=== PATIENT | female | born 1965 | race Caucasian/White ===

== ENCOUNTER 2017-02-08 08:21 | Emergency (ER) | payer MEDICARE, OTHER ==
[~2017-02-08] VITALS: Ht 177.8 cm; Wt 54.4 kg
[~2017-02-08 08:21] MED LIST: ALBU8HFA4 INH; D ME PO; D-ME236L5 PO; DM/P295L17 PO; ESTR1TAB17 PO; FLUO10CA26 PO; LEVO125T PO; LEVO750T21 PO; OXYM30SP NS; PANT40TA2 PO; PREDNISONE PO; RALO60TA PO
[2017-02-08] MEDS ORDERED: AZAT50TA18 PO (08:32)
--- NOTE | 2017-02-08 09:33 | NUR ---
Pt is requesting pain medication, Dr. Alford notified.
--- NOTE | 2017-02-08 10:28 | NUR ---
IV removed. Catheter intact and site benign. Pressure and 4x4 gauze applied to site. No bleeding noted. Patient discharged to home in stable conditon with . Written and verbal after care instructions given. Patient verbalizes understanding of instructions.
== END 2017-02-08 10:33 | disposition home or self-care (01) ==
LOC: ER 08:21
DX: G43.909 Migraine, unspecified, not intractable, without status migrainosus (principal); F32.9 Major depressive disorder, single episode, unspecified; F17.200 Nicotine dependence, unspecified, uncomplicated; K21.9 Gastro-esophageal reflux disease without esophagitis; Z88.0 Allergy status to penicillin; Z88.2 Allergy status to sulfonamides
CPT/HCPCS: 96361; 96374; 96375; 99284; A4663; J1170; J2765; J7030

== ENCOUNTER 2017-08-11 10:24 | Emergency (ER) | payer MEDICARE, OTHER ==
[~2017-08-11] VITALS: Ht 177.8 cm; Wt 54.4 kg
[~2017-08-11 10:24] MED LIST changes: -ALBU8HFA4 INH; +AZAT50TA18 PO; -D ME PO; -D-ME236L5 PO; -DM/P295L17 PO; -FLUO10CA26 PO; -OXYM30SP NS; -PANT40TA2 PO
[2017-08-11] MEDS ORDERED: OMEP40CA37 PO (10:41)
[2017-08-11] MEDS ORDERED: PARO25TA16 PO (10:41)
[2017-08-11] MEDS ORDERED: SUCR1TAB PO (10:41)
[2017-08-11] MEDS ORDERED: COLC0.6C3 PO (10:41)
[2017-08-11] MEDS ORDERED: ONDANSETRON 4 MG/2 ML VIAL ONE ×2 (10:43→11:58)
[2017-08-11] MEDS ORDERED: HYDROMORPHONE 4 MG/1 ML DISP.SYRIN ONE ×2 (10:44→11:57)
[2017-08-11] MEDS ORDERED: IV NORMAL SALINE 1000 ML BAG IV ONE ×2 (10:45→11:45)
[2017-08-11] MEDS ORDERED: HYDROMORPHONE 1 MG/1 ML DISP.SYRIN IV ONE ×2 (10:45→11:45)
[2017-08-11] MEDS ORDERED: ONDANSETRON 4 MG/2 ML VIAL IV ONE (10:45)
--- NOTE | 2017-08-11 11:16 | NUR ---
Patient is resting comfortably on gurney with eyes closed. When patient's pain status was reassessed, patient requested, "Can I have one more bag of fluid and another dose of pain medicine before going home?" MD notified.
[2017-08-11] MEDS ORDERED: ONDANSETRON IV *ER 4 MG/2 ML VIAL IV ONE (11:45)
--- NOTE | 2017-08-11 12:03 | NUR ---
IV removed. per MD order. Catheter intact and site benign. Pressure and 4x4 gauze applied to site. No bleeding noted.
--- NOTE | 2017-08-11 12:04 | NUR ---
Patient is for discharge per Dr Peoples. Patient reported that she just called her adult daughter for a ride home.
--- NOTE | 2017-08-11 12:09 | NUR ---
"I feel so much better. Thank you very much." per patient's verbalization. Patient discharged to home in stable conditon. Written and verbal after care instructions given to patient. Patient verbalizes understanding of instructions. Patient left ER with steady gait.
== END 2017-08-11 12:10 | disposition home or self-care (01) ==
LOC: ER 10:24
DX: R51 Headache (principal); K21.9 Gastro-esophageal reflux disease without esophagitis; F17.210 Nicotine dependence, cigarettes, uncomplicated; Z88.0 Allergy status to penicillin; Z88.2 Allergy status to sulfonamides; Z88.8 Allergy status to other drugs, medicaments and biological substances; Z79.899 Other long term (current) drug therapy; Z79.2 Long term (current) use of antibiotics
CPT/HCPCS: A4663; J1170; J2405; J7030

== ENCOUNTER 2017-09-13 10:36 | Emergency (ER) | payer MEDICARE, OTHER ==
[~2017-09-13] VITALS: Ht 177.8 cm; Wt 56.7 kg
[~2017-09-13 10:36] MED LIST changes: +COLC0.6C3 PO; -LEVO750T21 PO; +OMEP40CA37 PO; +PARO25TA16 PO; -PREDNISONE PO; +SUCR1TAB PO
[2017-09-13] MEDS ORDERED: RESTASIS 0.05% EYE EMULSION (10:52)
[2017-09-13] MEDS ORDERED: DIAZ10TA PO (10:53)
[2017-09-13] MEDS ORDERED: PANTOPRAZOLE SODIUM 40 MG VIAL IV ONE (11:15)
[2017-09-13] MEDS ORDERED: ONDANSETRON 4 MG/2 ML VIAL IV ONE (11:15)
[2017-09-13] MEDS ORDERED: IV NORMAL SALINE 1000 ML BAG IV ONE (11:15)
[2017-09-13 11:27] LABS: BASOPHILS % (AUTO) 0.5 % (0.0-2.0); EOSINOPHILS % (AUTO) 0.2 % (0.0-7.0); HEMATOCRIT 36.5 % (31.2-41.9); HEMOGLOBIN 12.4 g/dL (10.9-14.3); LYMPHOCYTES # (AUTO) 1.9 K/uL (20.0-40.0); LYMPHOCYTES % (AUTO) 23.6 % (20.5-51.5); MEAN CORPUSCULAR HEMOGLOBIN 32.7 uug (24.7-32.8); MEAN CORPUSCULAR HGB CONC 34 g/dL (32.3-35.6); NEUTROPHILS # (AUTO) 5.1 K/uL (1.8-8.9); NEUTROPHILS % (AUTO) 63.7 % (38.5-71.5); PLATELET COUNT (AUTO) 318 K/uL (179-408)
[2017-09-13] MEDS ORDERED: ONDANSETRON 4 MG/2 ML VIAL ONE (11:32)
[2017-09-13] MEDS ORDERED: PANTOPRAZOLE SODIUM 40 MG VIAL ONE (11:32)
[2017-09-13 11:34] LABS: CREATININE 0.8 mg/dL (0.6-1.3); POTASSIUM 4.6 mmol/L (3.5-5.1)
[2017-09-13] MEDS ORDERED: MORPHINE SULFATE 4 MG/1 ML DISP.SYRIN ONE (11:36)
[2017-09-13 11:40] LABS: BILIRUBIN,DIRECT 0.1 mg/dL (0.0-0.2); BILIRUBIN,TOTAL 0.2 mg/dL (0.2-1.0); TOTAL PROTEIN, SERUM 7.9 g/dL (6.4-8.2)
[2017-09-13] MEDS ORDERED: MORPHINE SULFATE 4 MG/1 ML DISP.SYRIN IV ONE (11:45)
--- NOTE | 2017-09-13 12:05 | NUR ---
Patient was seen by MD. Patient states she feels ill after she gets IVIG for an autoimmune disease. IV placed, labs drawn, medications given aso rdered. Pt states morphine did not help with her pain. MD notified. Will give other med as ordered by MD.
[2017-09-13] MEDS ORDERED: KETOROLAC TROMETHAMINE 30 MG INJ ONE (12:10)
[2017-09-13] MEDS ORDERED: KETOROLAC TROMETHAMINE 30 MG INJ IVP ONE (12:15)
--- NOTE | 2017-09-13 13:00 | NUR ---
Patient states pain has diminished. Denies nausea. IV DC'd, cathetr tip intact, pressure applied, dressing applied. DC, Rx and follow up instructions given and explained to patient who states she understands all instructions.
[2017-09-13 13:01] VITALS: BP 129/82
== END 2017-09-13 13:02 | disposition home or self-care (01) ==
LOC: ER 10:36
DX: G89.29 Other chronic pain (principal); K21.9 Gastro-esophageal reflux disease without esophagitis; F17.210 Nicotine dependence, cigarettes, uncomplicated; Z88.0 Allergy status to penicillin; Z88.2 Allergy status to sulfonamides; Z88.1 Allergy status to other antibiotic agents; Z88.8 Allergy status to other drugs, medicaments and biological substances; Z79.899 Other long term (current) drug therapy
CPT/HCPCS: 36415; 85025; A4663; C9113; J1885; J2270; J2405; J7030

== ENCOUNTER 2018-06-29 11:22 | Emergency (ER) | payer MEDICARE, OTHER ==
[~2018-06-29] VITALS: Ht 177.8 cm; Wt 61.2 kg
[~2018-06-29 11:22] MED LIST changes: +DIAZ10TA PO; +RESTASIS 0.05% EYE EMULSION
--- NOTE | 2018-06-29 11:43 | NUR ---
Dr Billingsley at the bedside for MSE.
[2018-06-29 12:00] LABS: BASOPHILS % (AUTO) 0.4 % (0.0-2.0); EOSINOPHILS % (AUTO) 0.3 % (0.0-7.0); HEMATOCRIT 34.3 % (31.2-41.9); HEMOGLOBIN 11.6 g/dL (10.9-14.3); LYMPHOCYTES # (AUTO) 1.9 K/uL (20.0-40.0); LYMPHOCYTES % (AUTO) 29.9 % (20.5-51.5); MEAN CORPUSCULAR HEMOGLOBIN 31.6 uug (24.7-32.8); MEAN CORPUSCULAR HGB CONC 34 g/dL (32.3-35.6); MEAN CORPUSCULAR VOLUME 93.4 fL (75.5-95.3); MONOCYTES # (AUTO) 0.4 K/uL (2.0-10.0); MONOCYTES % (AUTO) 6.6 % (0.0-11.0); NEUTROPHILS % (AUTO) 62.8 % (38.5-71.5); PLATELET COUNT (AUTO) 278 K/uL (179-408); RED BLOOD CELL COUNT(AUTO) 3.67 MIL/uL (3.63-4.92); WHITE BLOOD COUNT (AUTO) 6.3 K/uL (3.8-11.8)
[2018-06-29] MEDS ORDERED: IV NORMAL SALINE 1000 ML BAG IV ONE ×2 (12:00→13:00)
[2018-06-29] MEDS ORDERED: HYDROMORPHONE 1 MG/1 ML DISP.SYRIN IV ONE ×2 (12:00→12:45)
[2018-06-29] MEDS ORDERED: ONDANSETRON 4 MG/2 ML VIAL IV ONE (12:00)
[2018-06-29] MEDS ORDERED: ONDANSETRON 4 MG/2 ML VIAL ONE (12:06)
[2018-06-29] MEDS ORDERED: HYDROMORPHONE 1 MG/1 ML DISP.SYRIN ONE ×2 (12:06→12:56)
[2018-06-29 12:12] LABS: CREATININE 0.7 mg/dL (0.6-1.3)
[2018-06-29 12:18] LABS: BILIRUBIN,DIRECT 0.1 mg/dL (0.0-0.2); BILIRUBIN,TOTAL 0.3 mg/dL (0.2-1.0); TOTAL PROTEIN, SERUM 6.9 g/dL (6.4-8.2)
--- NOTE | 2018-06-29 13:19 | NUR ---
Patient is resting comfortably in bed, states headache and nausea are gone. Family at the bedside.
[2018-06-29 13:56] VITALS: BP 133/80
--- NOTE | 2018-06-29 13:56 | NUR ---
IV removed. Catheter intact and site benign. Pressure and 4x4 gauze applied to site. No bleeding noted.
--- NOTE | 2018-06-29 13:58 | NUR ---
Patient discharged to home in stable conditon. Written and verbal after care instructions given. Patient verbalizes understanding of instructions.
== END 2018-06-29 13:59 | disposition home or self-care (01) ==
LOC: ER 11:22
DX: R51 Headache (principal); R11.0 Nausea; K21.9 Gastro-esophageal reflux disease without esophagitis; F17.200 Nicotine dependence, unspecified, uncomplicated; Z88.2 Allergy status to sulfonamides; Z88.0 Allergy status to penicillin; Z88.1 Allergy status to other antibiotic agents; Z88.8 Allergy status to other drugs, medicaments and biological substances; Z79.899 Other long term (current) drug therapy
CPT/HCPCS: 36415; 80048; 80076; 85025; 96374; 96375; 96376; 99283; J1170 ×2; J2405; A4663; J7030

== ENCOUNTER 2018-09-21 14:48 | Emergency (ER) | payer MEDICARE, OTHER ==
[~2018-09-21] VITALS: Ht 177.8 cm; Wt 59.0 kg
--- NOTE | 2018-09-21 15:02 | NUR ---
DR WINTERS AT THE BEDSIDE FOR MSE.
[2018-09-21] MEDS ORDERED: HYDROMORPHONE 1 MG/1 ML DISP.SYRIN IV ONE (15:15)
[2018-09-21] MEDS ORDERED: IV NORMAL SALINE 1000 ML BAG IV ONE (15:15)
[2018-09-21] MEDS ORDERED: ONDANSETRON 4 MG/2 ML VIAL IV ONE (15:15)
[2018-09-21] MEDS ORDERED: HYDROMORPHONE 2 MG/1 ML DISP.SYRIN ONE (15:18)
[2018-09-21] MEDS ORDERED: ONDANSETRON 4 MG/2 ML VIAL ONE (15:19)
[2018-09-21] MEDS ORDERED: diphenhydrAMINE 50 MG/1 ML VIAL ONE (15:42)
[2018-09-21] MEDS ORDERED: diphenhydrAMINE 50 MG/1 ML VIAL IV ONE (15:45)
--- NOTE | 2018-09-21 17:02 | NUR ---
IV removed. Catheter intact and site benign. Pressure and 4x4 gauze applied to site. No bleeding noted.
[2018-09-21 17:09] VITALS: BP 139/96
--- NOTE | 2018-09-21 17:10 | NUR ---
Patient discharged to home in stable conditon. Written and verbal after care instructions given. Patient verbalizes understanding of instructions.
== END 2018-09-21 17:10 | disposition home or self-care (01) ==
LOC: ER 14:50
DX: G43.909 Migraine, unspecified, not intractable, without status migrainosus (principal); R11.0 Nausea; R21 Rash and other nonspecific skin eruption; F17.210 Nicotine dependence, cigarettes, uncomplicated; K21.9 Gastro-esophageal reflux disease without esophagitis; Z88.1 Allergy status to other antibiotic agents; Z88.0 Allergy status to penicillin; Z88.2 Allergy status to sulfonamides; Z88.8 Allergy status to other drugs, medicaments and biological substances; Z79.899 Other long term (current) drug therapy
CPT/HCPCS: 96374; 96375; 99283; J1170; J1200; J2405; A4663; J7030

== ENCOUNTER 2018-12-11 11:30 | Emergency (ER) | payer MEDICARE, OTHER ==
[~2018-12-11] VITALS: Ht 177.8 cm; Wt 56.7 kg
[2018-12-11] MEDS ORDERED: ONDANSETRON 4 MG/2 ML VIAL IV ONE (12:00)
[2018-12-11] MEDS ORDERED: LORAZEPAM 2 MG/1 ML VIAL IV ONE (12:00)
[2018-12-11] MEDS ORDERED: HYDROMORPHONE 1 MG/1 ML DISP.SYRIN IV ONE (12:00)
[2018-12-11] MEDS ORDERED: IV NORMAL SALINE 1000 ML BAG IV ONE (12:00)
[2018-12-11 12:20] LABS: BASOPHILS % (AUTO) 0.7 % (0.0-2.0); EOSINOPHILS % (AUTO) 0.6 % (0.0-7.0); HEMOGLOBIN 11.4 g/dL (10.9-14.3); LYMPHOCYTES # (AUTO) 1.8 K/uL (20.0-40.0); MEAN CORPUSCULAR HEMOGLOBIN 33.3 uug (24.7-32.8); MEAN CORPUSCULAR HGB CONC 34 g/dL (32.3-35.6); MEAN CORPUSCULAR VOLUME 99.5 fL (75.5-95.3); MONOCYTES # (AUTO) 0.4 K/uL (2.0-10.0); NEUTROPHILS # (AUTO) 1.9 K/uL (1.8-8.9); NEUTROPHILS % (AUTO) 45.7 % (38.5-71.5); PLATELET COUNT (AUTO) 203 K/uL (179-408); RED BLOOD CELL COUNT(AUTO) 3.42 MIL/uL (3.63-4.92); WHITE BLOOD COUNT (AUTO) 4.2 K/uL (3.8-11.8)
[2018-12-11 12:23] LABS: CREATININE 0.7 mg/dL (0.6-1.3); POTASSIUM 4.2 mmol/L (3.5-5.1)
[2018-12-11] MEDS ORDERED: HYDROMORPHONE 1 MG/1 ML DISP.SYRIN ONE (12:34)
[2018-12-11 12:35] LABS: BILIRUBIN,DIRECT 0.1 mg/dL (0.0-0.2); BILIRUBIN,TOTAL 0.3 mg/dL (0.2-1.0); TOTAL PROTEIN, SERUM 6.8 g/dL (6.4-8.2)
[2018-12-11] MEDS ORDERED: ONDANSETRON 4 MG/2 ML VIAL ONE (12:35)
[2018-12-11] MEDS ORDERED: LORAZEPAM 2 MG/1 ML VIAL ONE (12:35)
[2018-12-11 12:57] LABS: *BILIRUBIN,URIN NEGATIVE (NEGATIVE); *BLOOD, URINE NEGATIVE (NEGATIVE); *CLARITY,URINE CLEAR (CLEAR); *COLOR,URINE YELLOW (YELLOW); *KETONES,URINE NEGATIVE (NEGATIVE); *UROBILINOGEN,URINE 0.2 E.U./dl (NORMAL); LEUKOCYTE ESTERASE ,URINE NEGATIVE (NEGATIVE); NITRITE, URINE NEGATIVE (NEGATIVE); PH,URINE 6.5 (5.0-8.0); UGLUCOSE NEGATIVE (NEGATIVE)
[2018-12-11 13:24] VITALS: BP 118/72
== END 2018-12-11 13:25 | disposition home or self-care (01) ==
LOC: ER 11:30
DX: R51 Headache (principal); B00.9 Herpesviral infection, unspecified; E86.0 Dehydration; G43.909 Migraine, unspecified, not intractable, without status migrainosus; F17.210 Nicotine dependence, cigarettes, uncomplicated; K21.9 Gastro-esophageal reflux disease without esophagitis; F32.9 Major depressive disorder, single episode, unspecified; Z88.0 Allergy status to penicillin; Z88.2 Allergy status to sulfonamides; Z88.8 Allergy status to other drugs, medicaments and biological substances; Z79.899 Other long term (current) drug therapy
CPT/HCPCS: 36415; 71045; 80048; 80076; 81001; 83605; 85025; 87040 ×2; 87086; 96374; 96375; 99284; J1170; J2060; J2405; A4663; J7030

== ENCOUNTER 2020-01-06 14:27 | Emergency (ER) | payer MEDICARE, OTHER ==
[~2020-01-06] VITALS: Ht 177.8 cm; Wt 61.2 kg
[~2020-01-06 14:27] MED LIST changes: +OMEP40CA13 PO; -OMEP40CA37 PO
[2020-01-06] MEDS ORDERED: IV NORMAL SALINE 1000 ML BAG IV ONE (15:45)
[2020-01-06] MEDS ORDERED: HYDROMORPHONE 1 MG/1 ML DISP.SYRIN IV ONE ×3 (15:45→18:00)
[2020-01-06] MEDS ORDERED: ONDANSETRON 4 MG/2 ML VIAL IV ONE ×2 (15:45→16:45)
--- NOTE | 2020-01-06 16:00 | NUR ---
Pt has Rt chest, double port a cath. Dr Peoples and pt oksusie'd access of port a cath, 22 G,1", inserted.
[2020-01-06] MEDS ORDERED: HYDROMORPHONE 2 MG/1 ML DISP.SYRIN ONE ×2 (16:02→16:50)
[2020-01-06] MEDS ORDERED: ONDANSETRON 4 MG/2 ML VIAL ONE ×2 (16:03→16:51)
[2020-01-06] MEDS ORDERED: HYDROMORPHONE 1 MG/1 ML DISP.SYRIN ONE (18:04)
--- NOTE | 2020-01-06 18:34 | NUR ---
Discontinue Port a cath access, dressing applied.
[2020-01-06 18:35] VITALS: BP 114/78
--- NOTE | 2020-01-06 18:35 | NUR ---
Patient discharged to home in stable condition. Written and verbal after care instructions given. Patient verbalizes understanding of instructions. Stressed follow up or return to ER for worsening s/s.
== END 2020-01-06 18:38 | disposition home or self-care (01) ==
LOC: ER 14:27
DX: G43.909 Migraine, unspecified, not intractable, without status migrainosus (principal); Z88.2 Allergy status to sulfonamides; G89.29 Other chronic pain; F17.210 Nicotine dependence, cigarettes, uncomplicated; K21.9 Gastro-esophageal reflux disease without esophagitis; F32.9 Major depressive disorder, single episode, unspecified
CPT/HCPCS: 96374; 96375; 96376; 99284; J1170 ×3; J2405 ×2; A4663; J7030

== ENCOUNTER 2020-03-05 11:25 | Emergency (ER) | payer MEDICARE, OTHER ==
[~2020-03-05] VITALS: Ht 177.8 cm; Wt 63.5 kg
--- NOTE | 2020-03-05 11:32 | NUR ---
Dr. Peoples at bedside for MSE
[2020-03-05] MEDS ORDERED: IV NORMAL SALINE 1000 ML BAG IV ONE (11:45)
[2020-03-05] MEDS ORDERED: HYDROMORPHONE 1 MG/1 ML DISP.SYRIN ONE (12:25)
[2020-03-05] MEDS ORDERED: ONDANSETRON 4 MG/2 ML VIAL ONE (12:25)
[2020-03-05] MEDS ORDERED: HYDROMORPHONE 1 MG/1 ML DISP.SYRIN IV ONE (12:30)
[2020-03-05] MEDS ORDERED: ONDANSETRON 4 MG/2 ML VIAL IV ONE (12:30)
--- NOTE | 2020-03-05 13:10 | NUR ---
Portacath needle removed. Catheter intact and site benign. Pressure and 4x4 gauze applied to site. No bleeding noted. Patient discharged to home in stable condition. Written and verbal after care instructions given. Patient verbalizes understanding of instructions. Stressed follow up or return to ER for worsening s/s. Patient ambulated with steady gait. NAD noted
[2020-03-05 13:16] VITALS: BP 139/73
== END 2020-03-05 13:10 | disposition home or self-care (01) ==
LOC: ER 11:25
DX: M25.512 Pain in left shoulder (principal); S50.01XA Contusion of right elbow, initial encounter; W18.30XA Fall on same level, unspecified, initial encounter; Y92.89 Other specified places as the place of occurrence of the external cause; K21.9 Gastro-esophageal reflux disease without esophagitis; G89.29 Other chronic pain; Z88.0 Allergy status to penicillin; Z88.2 Allergy status to sulfonamides; Z88.8 Allergy status to other drugs, medicaments and biological substances; D80.1 Nonfamilial hypogammaglobulinemia; F17.210 Nicotine dependence, cigarettes, uncomplicated; Z79.899 Other long term (current) drug therapy
CPT/HCPCS: 73030; 73080; 96361; 96374; 96375; 99284; J1170; J2405; A4663; J7030

== ENCOUNTER 2020-10-16 11:03 | Emergency (ER) | payer MEDICARE, OTHER ==
[~2020-10-16] VITALS: Ht 177.8 cm; Wt 63.5 kg
[2020-10-16] MEDS ORDERED: IV NORMAL SALINE 1000 ML BAG IV ONE (11:45)
[2020-10-16] MEDS ORDERED: MORPHINE SULFATE 2 MG/1 ML DISP.SYRIN IV ONE ×2 (11:45→13:15)
[2020-10-16] MEDS ORDERED: ONDANSETRON 4 MG/2 ML VIAL IV ONE (11:45)
--- NOTE | 2020-10-16 11:45 | NUR ---
Dr hdz seen and examined the pt. notified of access port a cath on Rt chest wall.
[2020-10-16 11:53] LABS: BASOPHILS % (AUTO) 0.4 % (0.0-2.0); EOSINOPHILS % (AUTO) 0.2 % (0.0-7.0); HEMATOCRIT 35.1 % (31.2-41.9); HEMOGLOBIN 11.8 g/dL (10.9-14.3); LYMPHOCYTES # (AUTO) 1.5 K/uL (20.0-40.0); LYMPHOCYTES % (AUTO) 22.8 % (20.5-51.5); MEAN CORPUSCULAR HEMOGLOBIN 34.1 uug (24.7-32.8); MEAN CORPUSCULAR HGB CONC 34 g/dL (32.3-35.6); MEAN CORPUSCULAR VOLUME 101.3 fL (75.5-95.3); MONOCYTES # (AUTO) 0.7 K/uL (2.0-10.0); NEUTROPHILS # (AUTO) 4.2 K/uL (1.8-8.9); NEUTROPHILS % (AUTO) 65.6 % (38.5-71.5); PLATELET COUNT (AUTO) 236 K/uL (179-408); RED BLOOD CELL COUNT(AUTO) 3.47 MIL/uL (3.63-4.92); WHITE BLOOD COUNT (AUTO) 6.5 K/uL (3.8-11.8)
[2020-10-16] MEDS ORDERED: MORPHINE SULFATE 4 MG/1 ML DISP.SYRIN ONE ×2 (11:55→12:20)
[2020-10-16] MEDS ORDERED: ONDANSETRON 4 MG/2 ML VIAL ONE (11:55)
[2020-10-16 12:00] LABS: CREATININE 0.6 mg/dL (0.6-1.3); POTASSIUM 4.2 mmol/L (3.5-5.1)
[2020-10-16] MEDS ORDERED: MORPHINE SULFATE 4 MG/1 ML DISP.SYRIN IV ONE (12:15)
[2020-10-16] MEDS ORDERED: MORPHINE SULFATE 2 MG/1 ML DISP.SYRIN ONE (13:18)
[2020-10-16] MEDS ORDERED: ONDA-104 PO (13:18)
--- NOTE | 2020-10-16 13:30 | NUR ---
Pt able to tolorate PO intake, no nausea reported.
--- NOTE | 2020-10-16 13:42 | NUR ---
IV Port a Cath access removed, Catheter intact and site benign. Pressure and 4x4 gauze applied to site. No bleeding noted.
[2020-10-16 13:43] VITALS: BP 143/69
== END 2020-10-16 13:45 | disposition home or self-care (01) ==
LOC: ER 11:03
DX: G43.909 Migraine, unspecified, not intractable, without status migrainosus (principal); R11.10 Vomiting, unspecified; G89.29 Other chronic pain; Z88.1 Allergy status to other antibiotic agents; Z88.0 Allergy status to penicillin; Z88.2 Allergy status to sulfonamides; D80.1 Nonfamilial hypogammaglobulinemia; K21.9 Gastro-esophageal reflux disease without esophagitis; F17.210 Nicotine dependence, cigarettes, uncomplicated; M06.9 Rheumatoid arthritis, unspecified; Z79.899 Other long term (current) drug therapy
CPT/HCPCS: 36415; 80048; 85025; 96361; 96374; 96375; 96376; 99284; J2270 ×3; J2405; A4663; J7030

== ENCOUNTER 2020-10-17 08:51 | Emergency (ER) | payer MEDICARE, OTHER ==
[~2020-10-17] VITALS: Ht 177.8 cm; Wt 63.5 kg
[~2020-10-17 08:51] MED LIST changes: +ONDA-104 PO
--- NOTE | 2020-10-17 09:18 | NUR ---
Dr Billingsley at the bedside for MSE.
[2020-10-17] MEDS: ONDANSETRON 4 MG/2 ML VIAL IM ONE (09:28)
[2020-10-17] MEDS ORDERED: MORPHINE SULFATE 4 MG/1 ML DISP.SYRIN ONE (09:28)
[2020-10-17] MEDS ORDERED: ONDANSETRON 4 MG/2 ML VIAL ONE (09:28)
[2020-10-17] MEDS: MORPHINE SULFATE 4 MG/1 ML DISP.SYRIN IM ONE (09:28)
--- NOTE | 2020-10-17 09:35 | NUR ---
Access RT chest wall Port a cath per Md request.
[2020-10-17] MEDS: IV NS 1000 ML 1,000 ML IV ONE (09:36)
--- NOTE | 2020-10-17 10:43 | NUR ---
Removed access from Port a Cath, Catheter intact and site benign. Pressure and 4x4 gauze applied to site. No bleeding noted.
[2020-10-17 10:44] VITALS: BP 131/79
== END 2020-10-17 10:45 | disposition home or self-care (01) ==
LOC: ER 08:51
DX: G43.909 Migraine, unspecified, not intractable, without status migrainosus (principal); R11.10 Vomiting, unspecified; F17.210 Nicotine dependence, cigarettes, uncomplicated; M06.9 Rheumatoid arthritis, unspecified; D80.1 Nonfamilial hypogammaglobulinemia; K21.9 Gastro-esophageal reflux disease without esophagitis; Z88.1 Allergy status to other antibiotic agents; Z88.0 Allergy status to penicillin; Z88.2 Allergy status to sulfonamides; R03.0 Elevated blood-pressure reading, without diagnosis of hypertension; G89.29 Other chronic pain
CPT/HCPCS: 96360; 96372 ×2; 99284; J2270; J2405; A4663; J7030

== ENCOUNTER 2021-01-15 14:54 | Emergency (ER) | payer MEDICARE, OTHER ==
[~2021-01-15] VITALS: Ht 177.8 cm; Wt 63.5 kg
[~2021-01-15 14:54] MED LIST changes: -OMEP40CA13 PO; +OMEP40CA21 PO
--- NOTE | 2021-01-15 15:30 | NUR ---
Dr Garcia at the bedside for MSE.
[2021-01-15] MEDS ORDERED: HYDROMORPHONE 1 MG/1 ML DISP.SYRIN IV ONE (15:45)
[2021-01-15] MEDS ORDERED: IV NORMAL SALINE 1000 ML BAG IV ONE (15:45)
[2021-01-15] MEDS ORDERED: ONDANSETRON 4 MG/2 ML VIAL IV ONE (15:45)
--- NOTE | 2021-01-15 15:45 | NUR ---
Access PORT A Cath on RT chest wall w/ 22 guage, 1/2 inch needle. Pt tolorated well.
[2021-01-15] MEDS ORDERED: HYDROMORPHONE 2 MG/1 ML DISP.SYRIN ONE (15:56)
[2021-01-15] MEDS ORDERED: ONDANSETRON 4 MG/2 ML VIAL ONE (15:56)
[2021-01-15 17:14] VITALS: BP 116/60
--- NOTE | 2021-01-15 17:15 | NUR ---
Port a cath access removed. Catheter intact and site benign. Pressure and 4x4 gauze applied to site. No bleeding noted.
== END 2021-01-15 17:15 | disposition home or self-care (01) ==
LOC: ER 14:54
DX: G43.909 Migraine, unspecified, not intractable, without status migrainosus (principal); G89.29 Other chronic pain; F17.210 Nicotine dependence, cigarettes, uncomplicated; Z88.0 Allergy status to penicillin; Z88.2 Allergy status to sulfonamides; B00.9 Herpesviral infection, unspecified; K21.9 Gastro-esophageal reflux disease without esophagitis; Z87.11 Personal history of peptic ulcer disease; F32.9 Major depressive disorder, single episode, unspecified; Z79.899 Other long term (current) drug therapy
CPT/HCPCS: 96361; 96374; 96375; 99284; J1170; J2405; A4663; J7030

== ENCOUNTER 2021-02-28 15:40 | Emergency (ER) | payer MEDICARE, OTHER ==
[~2021-02-28] VITALS: Ht 175.3 cm; Wt 52.6 kg
[2021-02-28] MEDS ORDERED: LIDOCAINE VISCUS 2% 15 ML UDC MM ONE (16:30)
[2021-02-28] MEDS ORDERED: MAG HYDROX/AL HYDROX/SIMETH 30 ML LIQUID UDC PO ONE (16:30)
[2021-02-28] MEDS ORDERED: ONDANSETRON 4 MG/2 ML VIAL IV ONE (16:30)
[2021-02-28] MEDS ORDERED: IV NORMAL SALINE 1000 ML BAG IV ONE (16:30)
[2021-02-28] MEDS ORDERED: MORPHINE SULFATE 2 MG/1 ML DISP.SYRIN IV ONE (16:30)
[2021-02-28 16:39] LABS: HEMATOCRIT 39.8 % (31.2-41.9); MEAN CORPUSCULAR HEMOGLOBIN 34.5 uug (24.7-32.8); MEAN CORPUSCULAR VOLUME 100.6 fL (75.5-95.3); PLATELET COUNT (AUTO) 310 K/uL (179-408)
[2021-02-28 16:51] LABS: CREATININE 0.9 mg/dL (0.6-1.3); POTASSIUM 4.4 mmol/L (3.5-5.1)
[2021-02-28 16:56] LABS: BILIRUBIN,DIRECT 0.1 mg/dL (0.0-0.2); BILIRUBIN,TOTAL 0.2 mg/dL (0.2-1.0); TOTAL PROTEIN, SERUM 7.6 g/dL (6.4-8.2)
--- NOTE | 2021-02-28 17:21 | NUR ---
[employer] Analyst assumes care:1st contact with patient, AOX4, calm & breathing easily, c/o mouth sores & pains with swallowing, generalized aches & weakness, +dizziness and nausea. Skin is warm & dry, denies chest pains. She ambulates in ER with steady gait.
[2021-02-28] MEDS ORDERED: ONDANSETRON 4 MG/2 ML VIAL ONE (17:23)
[2021-02-28] MEDS ORDERED: LIDOCAINE VISCUS 2% 15 ML UDC ONE (17:23)
[2021-02-28] MEDS ORDERED: MORPHINE SULFATE 2 MG/1 ML DISP.SYRIN ONE (17:24)
--- NOTE | 2021-02-28 17:53 | NUR ---
IV fluid infusing well thru right chest PORT catheter. Warm blankets on. Maintained on continuous cardiac, BP & Spo2 monitors with alarms set, on & audible.
--- NOTE | 2021-02-28 18:29 | NUR ---
"Can I have more IV fluids?" notified.
[2021-02-28] MEDS ORDERED: HEPARIN SODIUM,PORCINE/PF 100 UNIT/ML, 5ML SYR XX ONE (18:30)
[2021-02-28] MEDS ORDERED: HEPARIN SODIUM,PORCINE/PF 100 UNIT/ML, 5ML SYR ONE (18:34)
--- NOTE | 2021-02-28 18:39 | NUR ---
PORT deaccessed and heparin locked. Patient discharged to home in stable condition. Written and verbal after care instructions given to patient. Patient verbalized understanding and compliance of instructions. Stressed follow up primary doctor or return to ER for worsening s/s. Patient is now waiting for her ride. Patient said that her son is coming to pick her up.
--- NOTE | 2021-02-28 18:43 | NUR ---
Patient ambulated with brisk steady gait.
== END 2021-02-28 18:43 | disposition home or self-care (01) ==
LOC: ER 15:47
DX: R53.1 Weakness (principal); E86.0 Dehydration; K12.1 Other forms of stomatitis; R94.31 Abnormal electrocardiogram [ECG] [EKG]; M06.9 Rheumatoid arthritis, unspecified; F17.210 Nicotine dependence, cigarettes, uncomplicated; K21.9 Gastro-esophageal reflux disease without esophagitis; G89.29 Other chronic pain; D80.1 Nonfamilial hypogammaglobulinemia; Z79.899 Other long term (current) drug therapy; Z88.1 Allergy status to other antibiotic agents; Z88.0 Allergy status to penicillin; Z88.2 Allergy status to sulfonamides; Z88.9 Allergy status to unspecified drugs, medicaments and biological substances; Z79.890 Hormone replacement therapy
CPT/HCPCS: 36415; 85025; 93005; A4663; J1642; J2270; J2405; J7030

== ENCOUNTER 2022-05-13 20:55 | Emergency (ER) | payer MEDICARE, OTHER, MEDICAID ==
[~2022-05-13] VITALS: Ht 177.8 cm; Wt 59.0 kg
--- NOTE | 2022-05-13 20:55 | NUR ---
Dr. Hills evaluating pt at bedside. MSE in progress.
[2022-05-13] MEDS ORDERED: CLINDAMYCIN PHOSPHATE IV 900 MG in IV DEXTROSE 5% 100 ML IV ONE (21:15)
[2022-05-13] MEDS ORDERED: IV NORMAL SALINE 1000 ML BAG IV ONE (21:15)
[2022-05-13] MEDS ORDERED: CLIN300C12 PO (21:25)
[2022-05-13] MEDS ORDERED: CLINDAMYCIN 900MG/D5W 100ML IVPB **ER PYXIS ONLY IJ ONE (21:54)
--- NOTE | 2022-05-13 22:00 | NUR ---
Per Dr. Hills, given order to access [id number] to administer Cleocin 900mg in Dextrose 5% 50 ml and 1L of NS bolus.
[2022-05-13] MEDS ORDERED: [UNRECOGNIZED DRUG - CODE] PO (22:35)
[2022-05-13] MEDS ORDERED: PSEUDOEPHEDRINE HCL 30 MG TABLET ONE (22:35)
[2022-05-13] MEDS ORDERED: PSEUDOEPHEDRINE HCL 30 MG TABLET PO ONE (22:45)
[2022-05-13 23:58] VITALS: BP 130/88
== END 2022-05-13 23:51 | disposition home or self-care (01) ==
LOC: ER 20:58
DX: J32.9 Chronic sinusitis, unspecified (principal); Z87.891 Personal history of nicotine dependence; M06.9 Rheumatoid arthritis, unspecified; D80.1 Nonfamilial hypogammaglobulinemia; Z79.899 Other long term (current) drug therapy; K21.9 Gastro-esophageal reflux disease without esophagitis; G89.4 Chronic pain syndrome; Z88.1 Allergy status to other antibiotic agents
CPT/HCPCS: A4663; J3490; J7040

== ENCOUNTER 2022-07-05 09:50 | Emergency (ER) | payer MEDICARE, OTHER ==
[~2022-07-05] VITALS: Ht 177.8 cm; Wt 59.0 kg
[~2022-07-05 09:50] MED LIST changes: +CLIN300C12 PO; +[UNRECOGNIZED DRUG - CODE] PO
[2022-07-05] MEDS ORDERED: diphenhydrAMINE 50 MG/1 ML VIAL ONE (10:06)
[2022-07-05] MEDS ORDERED: METOCLOPRAMIDE HCL 10 MG/2 ML VIAL ONE (10:07)
[2022-07-05] MEDS ORDERED: MORPHINE SULFATE 4 MG/1 ML DISP.SYRIN ONE (10:07)
--- NOTE | 2022-07-05 10:20 | NUR ---
Rt chest port a cath accessed per Md order w/ angio, 1.1 ",pt tolorated well.
[2022-07-05] MEDS: IV NS 1000 ML 1,000 ML IV ONE (10:22)
[2022-07-05] MEDS: METOCLOPRAMIDE HCL 10 MG/2 ML VIAL IV ONE (10:24)
[2022-07-05] MEDS: diphenhydrAMINE 50 MG/1 ML VIAL IV ONE (10:25)
[2022-07-05] MEDS: MORPHINE SULFATE 4 MG/1 ML DISP.SYRIN IV ONE (10:26)
--- NOTE | 2022-07-05 11:09 | NUR ---
Patient is resting comfortably in bed with eyes closed, NAD noted.
[2022-07-05] MEDS ORDERED: DEXAMETHASONE SOD PHOSPHATE 10 MG INJ ONE (11:45)
[2022-07-05] MEDS ORDERED: CYANOCOBALAMIN 1000 MCG/ML VIAL ONE (11:45)
[2022-07-05] MEDS ORDERED: CYANOCOBALAMIN 1000 MCG/ML VIAL IM ONE (11:45)
[2022-07-05] MEDS: DEXAMETHASONE SOD PHOSPHATE 4 MG INJ IV ONE (11:54)
[2022-07-05] MEDS: CYANOCOBALAMIN 1000 MCG/ML VIAL IM ONE (11:54)
[2022-07-05 12:27] VITALS: BP 116/72
--- NOTE | 2022-07-05 12:27 | NUR ---
Port the cath access removed. Catheter intact and site benign. Pressure and 4x4 gauze applied to site. No bleeding noted.
== END 2022-07-05 12:29 | disposition home or self-care (01) ==
LOC: ER 09:50
DX: R51.9 Headache, unspecified (principal); M06.9 Rheumatoid arthritis, unspecified; K90.0 Celiac disease; D80.1 Nonfamilial hypogammaglobulinemia
CPT/HCPCS: 99284; 96374; 96375; 96361; 96372; J3420; J1100; J1200; J2765; J2270; J7040; A4663

== ENCOUNTER 2022-08-13 10:39 | Emergency (ER) | payer MEDICARE, OTHER ==
[~2022-08-13] VITALS: Ht 170.2 cm; Wt 60.3 kg
[2022-08-13] MEDS ORDERED: METOCLOPRAMIDE HCL 10 MG/2 ML VIAL IV ONE (11:00)
[2022-08-13] MEDS ORDERED: IV NORMAL SALINE 1000 ML BAG IV ONE (11:00)
[2022-08-13] MEDS ORDERED: diphenhydrAMINE 50 MG/1 ML VIAL IV ONE (11:00)
[2022-08-13] MEDS ORDERED: KETOROLAC TROMETHAMINE 15 MG INJ IVP ONE (11:00)
[2022-08-13] MEDS ORDERED: diphenhydrAMINE 50 MG/1 ML VIAL ONE (11:02)
[2022-08-13] MEDS ORDERED: METOCLOPRAMIDE HCL 10 MG/2 ML VIAL ONE (11:02)
[2022-08-13] MEDS ORDERED: KETOROLAC TROMETHAMINE 15 MG INJ ONE (11:03)
--- NOTE | 2022-08-13 11:35 | NUR ---
PT IS IN ROOM #1B. DR REESE EVALUATED THE PT.
[2022-08-13] MEDS ORDERED: METO-295 PO (12:02)
[2022-08-13] MEDS ORDERED: IBUP-1955 PO (12:02)
[2022-08-13] MEDS ORDERED: HYDROMORPHONE 1 MG/1 ML DISP.SYRIN ONE (12:26)
[2022-08-13] MEDS ORDERED: ACETAMINOPHEN 325 MG TABLET PO ONE (12:30)
[2022-08-13] MEDS ORDERED: HYDROMORPHONE 1 MG/1 ML DISP.SYRIN IV ONE (12:30)
--- NOTE | 2022-08-13 12:32 | NUR ---
PT WAS D/C'd TO HOME. D/C INSTRUCTIONS GIVEN TO THE PT BY DR REESE.
[2022-08-13 12:40] VITALS: BP 128/77
== END 2022-08-13 12:54 | disposition home or self-care (01) ==
LOC: ER 10:39
DX: G43.909 Migraine, unspecified, not intractable, without status migrainosus (principal); I25.10 Atherosclerotic heart disease of native coronary artery without angina pectoris; K21.9 Gastro-esophageal reflux disease without esophagitis; F17.210 Nicotine dependence, cigarettes, uncomplicated; Z88.0 Allergy status to penicillin; Z88.1 Allergy status to other antibiotic agents; Z88.2 Allergy status to sulfonamides; Z88.8 Allergy status to other drugs, medicaments and biological substances; Z79.1 Long term (current) use of non-steroidal anti-inflammatories (NSAID); Z79.2 Long term (current) use of antibiotics; Z79.899 Other long term (current) drug therapy
CPT/HCPCS: 99284; 96374; 96375; 96361; J1200; J1885; J2765; J1170; J7040; A4663

== ENCOUNTER 2024-09-26 09:52 | Emergency (ER) | payer MEDICARE, OTHER ==
[~2024-09-26] VITALS: Ht 177.8 cm; Wt 52.2 kg
[~2024-09-26 09:52] MED LIST changes: +IBUP-1955 PO; +METO-295 PO
[2024-09-26] MEDS ORDERED: ESTR2TAB PO (10:11)
[2024-09-26] MEDS ORDERED: ACYC5CRE2 TP (10:12)
[2024-09-26] MEDS ORDERED: PRAV10TA40 PO (10:39)
[2024-09-26] MEDS ORDERED: IMMU40VI INJ (10:39)
[2024-09-26] MEDS ORDERED: LEVO100T10 PO (10:39)
[2024-09-26] MEDS ORDERED: FOLI1TAB27 PO (10:39)
[2024-09-26] MEDS ORDERED: HYDR4TAB57 PO (10:39)
[2024-09-26] MEDS ORDERED: ABAT125S SQ (10:39)
[2024-09-26] MEDS ORDERED: OXYC-133 PO (10:39)
[2024-09-26] MEDS ORDERED: LEFL10TA20 PO (10:39)
[2024-09-26] MEDS ORDERED: MUPI22OI2 TOP (10:39)
[2024-09-26] MEDS ORDERED: DICL100G31 TP (10:39)
[2024-09-26] MEDS ORDERED: MORP15TA PO (10:39)
[2024-09-26] MEDS ORDERED: ZOLP10TA2 PO (10:39)
[2024-09-26] MEDS ORDERED: ONDA4TAB11 PO (10:39)
[2024-09-26] MEDS ORDERED: HYDR50TA62 PO (10:39)
[2024-09-26] MEDS ORDERED: IPRA12.9 INH (10:39)
[2024-09-26] MEDS ORDERED: PANT40TA49 PO (10:39)
[2024-09-26] MEDS ORDERED: VALA500T34 PO (10:39)
[2024-09-26] MEDS ORDERED: FAMO40TA7 PO (10:39)
[2024-09-26] MEDS ORDERED: MAGN400T26 PO (10:39)
[2024-09-26] MEDS ORDERED: TRIA60LO8 TP (10:39)
[2024-09-26] MEDS ORDERED: CEFAZOLIN 1 G VIAL ONE (10:42)
[2024-09-26] MEDS ORDERED: diphenhydrAMINE 50 MG/1 ML VIAL ONE (10:42)
[2024-09-26] MEDS: IV NORMAL SALINE 1000 ML BAG IV ONE (10:45)
[2024-09-26] MEDS: diphenhydrAMINE 50 MG/1 ML VIAL IV ONE (10:45)
[2024-09-26] MEDS: CEFAZOLIN 1 G in IV DEXTROSE 5% 50 ML IV ONE (10:45)
[2024-09-26 11:10] LABS: BASOPHILS % (AUTO) 0.7 % (0.0-2.0); EOSINOPHILS % (AUTO) 0.5 % (0.0-7.0); HEMATOCRIT 33.2 % (31.2-41.9); LYMPHOCYTES # (AUTO) 1.1 K/uL (0.8-4.8); MEAN CORPUSCULAR HEMOGLOBIN 31.4 uug (24.7-32.8); MEAN CORPUSCULAR HGB CONC 33 g/dL (32.3-35.6); MEAN CORPUSCULAR VOLUME 95.1 fL (75.5-95.3); MONOCYTES # (AUTO) 0.6 K/uL (0.1-1.30); MONOCYTES % (AUTO) 16.3 % (0.0-11.0); NEUTROPHILS # (AUTO) 2.1 K/uL (1.8-8.9); NEUTROPHILS % (AUTO) 54.5 % (38.5-71.5); PLATELET COUNT (AUTO) 216 K/uL (179-408); RED BLOOD CELL COUNT(AUTO) 3.49 MIL/uL (3.63-4.92); RED CELL DISTRIBUTION WIDTH 14.3 % (12.3-17.7); WHITE BLOOD COUNT (AUTO) 3.8 K/uL (3.8-11.8)
[2024-09-26 11:13] LABS: DIFFERENTIAL COMMENT 1
[2024-09-26 11:23] LABS: BILIRUBIN,DIRECT 0.1 mg/dL (0.0-0.2); BILIRUBIN,TOTAL 0.3 mg/dL (0.2-1.0); CALCIUM 7.9 mg/dL (8.5-10.1); CREATININE 0.5 mg/dL (0.6-1.3); POTASSIUM 3.7 mmol/L (3.5-5.1); TOTAL PROTEIN, SERUM 6.4 g/dL (6.4-8.2)
[2024-09-26 11:28] LABS: NEUTROPHILS % (MANUAL) 55 % (42-75)
[2024-09-26 11:29] LABS: EOSINOPHILS % (MANUAL) 1 % (0-8); LYMPHOCYTES % (MANUAL) 28 % (20-40); MONOCYTES % (MANUAL) 16 % (2-10); PLATELET ESTIMATE ADEQUATE
[2024-09-26] MEDS ORDERED: HEPARIN SODIUM,PORCINE/PF 500 UNIT/5 ML SYR ONE (12:17)
[2024-09-26] MEDS ORDERED: HYDR-501 PO (12:23)
[2024-09-26] MEDS ORDERED: GABA-532 PO (12:23)
[2024-09-26] MEDS ORDERED: MUPI15CR TP (12:23)
[2024-09-26] MEDS ORDERED: CEPH500C2 PO (12:23)
[2024-09-26] MEDS: HEPARIN SODIUM,PORCINE/PF 50 UNIT/5 ML SYR IV STA (12:45)
[2024-09-26 13:21] VITALS: BP 136/86; TEMP 97.6; O2SAT 100
== END 2024-09-26 13:03 | disposition home or self-care (01) ==
LOC: ER 09:56
DX: R21 Rash and other nonspecific skin eruption (principal); F17.200 Nicotine dependence, unspecified, uncomplicated; F32.A Depression, unspecified; G89.29 Other chronic pain; M06.9 Rheumatoid arthritis, unspecified; K21.9 Gastro-esophageal reflux disease without esophagitis; G43.909 Migraine, unspecified, not intractable, without status migrainosus; Z79.624 Long term (current) use of inhibitors of nucleotide synthesis; Z88.0 Allergy status to penicillin; Z88.1 Allergy status to other antibiotic agents; Z88.2 Allergy status to sulfonamides; Z90.49 Acquired absence of other specified parts of digestive tract; Z90.710 Acquired absence of both cervix and uterus; Z79.899 Other long term (current) drug therapy; Z86.79 Personal history of other diseases of the circulatory system
CPT/HCPCS: 99284; 96374; 96375; 80076; 80048; 85025; 84145; 86140; 36415; 85007; J1642 ×2; J0690; J1200; J7040; A4606; A4663

== ENCOUNTER 2024-10-31 10:13 | Emergency (ER) | payer MEDICARE, OTHER ==
[~2024-10-31] VITALS: Ht 177.8 cm; Wt 54.4 kg
[~2024-10-31 10:13] MED LIST changes: +ABAT125S SQ; +ACYC5CRE2 TP; -AZAT50TA18 PO; +CEPH500C2 PO; -CLIN300C12 PO; +DICL100G31 TP; -ESTR1TAB17 PO; +ESTR2TAB PO; +FAMO40TA7 PO; +FOLI1TAB27 PO; +GABA-532 PO; +HYDR-501 PO; +HYDR4TAB57 PO; +HYDR50TA62 PO; +IMMU40VI INJ; +IPRA12.9 INH; +LEFL10TA20 PO; +LEVO100T10 PO; -LEVO125T PO; +MAGN400T26 PO; -METO-295 PO; +MORP15TA PO; +MUPI15CR TP; +MUPI22OI2 TOP; -OMEP40CA21 PO; -ONDA-104 PO; +ONDA4TAB11 PO; +OXYC-133 PO; +PANT40TA49 PO; -PARO25TA16 PO; +PRAV10TA40 PO; -SUCR1TAB PO; +TRIA60LO8 TP; +VALA500T34 PO; +ZOLP10TA2 PO; -[UNRECOGNIZED DRUG - CODE] PO
[2024-10-31] MEDS ORDERED: diphenhydrAMINE 50 MG CAPSULE ONE (11:09)
[2024-10-31] MEDS ORDERED: diphenhydrAMINE 50 MG CAPSULE PO ONE (11:15)
[2024-10-31] MEDS ORDERED: diphenhydrAMINE 50 MG/1 ML VIAL ONE (11:27)
[2024-10-31 11:30] LABS: BASOPHILS % (AUTO) 0.9 % (0.0-2.0); EOSINOPHILS % (AUTO) 1.2 % (0.0-7.0); HEMATOCRIT 35.5 % (31.2-41.9); HEMOGLOBIN 11.7 g/dL (10.9-14.3); LYMPHOCYTES # (AUTO) 1.1 K/uL (0.8-4.8); LYMPHOCYTES % (AUTO) 29.3 % (20.5-51.5); MEAN CORPUSCULAR HGB CONC 33 g/dL (32.3-35.6); MEAN CORPUSCULAR VOLUME 94.3 fL (75.5-95.3); MONOCYTES # (AUTO) 0.5 K/uL (0.1-1.30); MONOCYTES % (AUTO) 13.1 % (0.0-11.0); NEUTROPHILS # (AUTO) 2.1 K/uL (1.8-8.9); NEUTROPHILS % (AUTO) 55.5 % (38.5-71.5); PLATELET COUNT (AUTO) 186 K/uL (179-408); RED BLOOD CELL COUNT(AUTO) 3.76 MIL/uL (3.63-4.92); RED CELL DISTRIBUTION WIDTH 13.7 % (12.3-17.7); WHITE BLOOD COUNT (AUTO) 3.9 K/uL (3.8-11.8)
[2024-10-31] MEDS: diphenhydrAMINE 50 MG/1 ML VIAL IV ONE (11:31)
[2024-10-31 11:37] LABS: CALCIUM 8.5 mg/dL (8.5-10.1); CREATININE 0.6 mg/dL (0.6-1.3); DIFFERENTIAL COMMENT 1; POTASSIUM 4.3 mmol/L (3.5-5.1)
[2024-10-31] MEDS ORDERED: HEPARIN SODIUM,PORCINE/PF 500 UNIT/5 ML SYR ONE (11:49)
[2024-10-31] MEDS: HEPARIN SODIUM,PORCINE/PF 50 UNIT/5 ML SYR IV ONE (12:08)
[2024-10-31] MEDS ORDERED: DIPH25CA83 PO (12:25)
[2024-10-31] MEDS ORDERED: MUPI15CR TP (12:25)
[2024-10-31] MEDS ORDERED: CEFD300C3 PO (12:25)
[2024-10-31 12:38] VITALS: BP 118/73; TEMP 98.8; O2SAT 98
== END 2024-10-31 12:39 | disposition home or self-care (01) ==
LOC: ER 10:18
DX: B05.9 Measles without complication (principal); F17.200 Nicotine dependence, unspecified, uncomplicated; M06.9 Rheumatoid arthritis, unspecified; K21.9 Gastro-esophageal reflux disease without esophagitis; G43.909 Migraine, unspecified, not intractable, without status migrainosus; F32.A Depression, unspecified; Z79.624 Long term (current) use of inhibitors of nucleotide synthesis; Z79.69 Long term (current) use of other immunomodulators and immunosuppressants; Z79.899 Other long term (current) drug therapy; Z88.0 Allergy status to penicillin; Z88.1 Allergy status to other antibiotic agents; Z88.2 Allergy status to sulfonamides; Z90.49 Acquired absence of other specified parts of digestive tract; Z90.710 Acquired absence of both cervix and uterus; Z86.79 Personal history of other diseases of the circulatory system; Z87.39 Personal history of other diseases of the musculoskeletal system and connective tissue
CPT/HCPCS: 99284; 96374; 96375; 80048; 85025; 36415; 87070; 87075; 87186; J1642 ×2; J1200; A4606; A4663; Q0163

== ENCOUNTER 2024-11-19 13:32 | Emergency (ER) | payer MEDICARE, OTHER ==
[~2024-11-19] VITALS: Ht 170.2 cm; Wt 52.6 kg
[~2024-11-19 13:32] MED LIST changes: +CEFD300C3 PO; +DIPH25CA83 PO
[2024-11-19] MEDS: IV NORMAL SALINE 1000 ML BAG IV ONE (13:55)
[2024-11-19 14:05] LABS: PLATELET COUNT (AUTO) 179 K/uL (179-408); RED BLOOD CELL COUNT(AUTO) 3.58 MIL/uL (3.63-4.92); RED CELL DISTRIBUTION WIDTH 13.4 % (12.3-17.7); WHITE BLOOD COUNT (AUTO) 3.7 K/uL (3.8-11.8)
[2024-11-19] MEDS ORDERED: LINEZOLID 600 MG/300 ML PIGGYBACK IV ONE (14:07)
[2024-11-19] MEDS ORDERED: diphenhydrAMINE 50 MG/1 ML VIAL ONE (14:07)
[2024-11-19] MEDS ORDERED: DEXAMETHASONE SOD PHOSPHATE 4 MG INJ ONE (14:07)
[2024-11-19 14:14] LABS: CREATININE 0.5 mg/dL (0.6-1.3); SODIUM SERUM 144.0 mmol/L (136-145); UREA NITROGEN, BLOOD 5.0 mg/dL (7-18)
[2024-11-19] MEDS: DEXAMETHASONE SOD PHOSPHATE 4 MG INJ IV ONE (14:15)
[2024-11-19] MEDS: diphenhydrAMINE 50 MG/1 ML VIAL IV ONE (14:16)
[2024-11-19] MEDS: LINEZOLID IV 600 MG in PREMIXED 1 EACH IV ONE (14:16)
[2024-11-19 14:20] LABS: ASPARTATE AMINOTRANSFERASE 19.0 U/L (15-37); TOTAL PROTEIN, SERUM 6.5 g/dL (6.4-8.2)
[2024-11-19] MEDS ORDERED: LINE600T15 PO (15:36)
[2024-11-19] MEDS ORDERED: HEPARIN SODIUM,PORCINE/PF 500 UNIT/5 ML SYR ONE (15:43)
[2024-11-19] MEDS: HEPARIN SODIUM,PORCINE/PF 500 UNIT/5 ML SYR XX ONE (16:09)
[2024-11-19 16:12] VITALS: BP 149/77; O2SAT 99
== END 2024-11-19 16:13 | disposition home or self-care (01) ==
LOC: ER 13:32
DX: R21 Rash and other nonspecific skin eruption (principal); E86.0 Dehydration; F17.200 Nicotine dependence, unspecified, uncomplicated; G89.29 Other chronic pain; M06.9 Rheumatoid arthritis, unspecified; G43.909 Migraine, unspecified, not intractable, without status migrainosus; K21.9 Gastro-esophageal reflux disease without esophagitis; F32.A Depression, unspecified; Z79.624 Long term (current) use of inhibitors of nucleotide synthesis; Z79.69 Long term (current) use of other immunomodulators and immunosuppressants; Z79.899 Other long term (current) drug therapy; Z88.0 Allergy status to penicillin; Z88.1 Allergy status to other antibiotic agents; Z88.2 Allergy status to sulfonamides; Z90.49 Acquired absence of other specified parts of digestive tract; Z90.710 Acquired absence of both cervix and uterus; Z86.79 Personal history of other diseases of the circulatory system; Z87.39 Personal history of other diseases of the musculoskeletal system and connective tissue
CPT/HCPCS: 36415; 83605; 85025; 87040; A4606; A4663; J1100; J1200; J1642; J2020; J7040